=== PATIENT | male | born 1995 | race Two or more races ===

== ENCOUNTER 2024-01-25 22:25 | Emergency (ER) | payer OTHER ==
[~2024-01-25] VITALS: Ht 167.6 cm; Wt 71.2 kg
[2024-01-25] MEDS ORDERED: HYDREA500 M1 PO (22:41)
[2024-01-25] MEDS ORDERED: FOLIC ACID20 MG PO (22:42)
[2024-01-25] MEDS ORDERED: 0.9 % SODIUM CHLORIDE 1,000 ML IV STA (23:24)
[2024-01-25] MEDS ORDERED: HYDROXYUREA 500 MG CAP PO ONE (23:30)
[2024-01-25] MEDS ORDERED: MEPERIDINE HCL/PF 50 MG/ML VIAL IM ONE (23:45)
[2024-01-26 01:10] LABS: CALCIUM 9.6 mg/dL (8.5-10.1); CREATININE SERUM 0.84 mg/dL (0.70-1.30); GFR 107.29; POTASSIUM 3.83 mEq/L (3.5-5.1)
[2024-01-26] MEDS ORDERED: FAMOTIDINE/PF 20 MG/2 ML VIAL IV PUSH ONE (01:15)
[2024-01-26 01:41] LABS: HEMATOCRIT 34.4 % (39.0-48.0); HEMOGLOBIN 12.2 g/dL (13-16.00); MEAN CELL VOLUME 87.7 fL (80.0-100.00); MEAN CORPUSCULAR HEMOGLOBIN 31.1 pg (27.00-32.0); MEAN CORPUSCULAR HGB CONC 35.5 g/dl (32.0-36.0); PLATELET COUNT 399 K/uL (150-450); RED BLOOD COUNT 3.93 M/uL (4.00-6.00); RED CELL DISTRIBUTION WIDTH 17.2 % (11.5-14.5)
[2024-01-26] MEDS ORDERED: MORPHINE SULFATE 4 MG/ML VIAL IV STA (03:46)
[2024-01-26 03:59] LABS: PH,URINE 5.5 (5.0-8.0); URINE APPEARANCE Clear; URINE BILIRRUBIN Negative (NEGATIVE); URINE BLOOD Negative; URINE COLOR Yellow; URINE GLUCOSE Negative (NEGATIVE); URINE LEUKOCYTE Negative; URINE NITRATE Negative; URINE PROTEIN Negative (NEGATIVE); URINE UROBILINOGEN 0.2 E.U./dl
[2024-01-26 04:00] LABS: URINE BACTERIA 11.3 uL (0.0-1933); URINE RBC 28.5 uL (0.0-20.8)
[2024-01-26 04:09] LABS: URINE EPITHELIAL CELLS 0.1 uL (0.0-38.8); URINE WBC 1.6 uL (0.0-23.2)
[2024-01-26] MEDS ORDERED: HYDREA500 M1 PO (06:23)
== END 2024-01-26 06:28 ==
LOC: ER 22:26
PROVIDERS: Emergency Medicine
DX: D57.1 Sickle-cell disease without crisis (principal); Z88.6 Allergy status to analgesic agent

== ENCOUNTER 2024-06-02 20:12 | Emergency (ER) | payer OTHER ==
[~2024-06-02] VITALS: Ht 167.6 cm; Wt 74.8 kg
[~2024-06-02 20:12] MED LIST: FOLIC ACID20 MG PO; HYDREA500 M1 PO
[2024-06-02 21:27] LABS: HEMATOCRIT 38.8 % (39.0-48.0); HEMOGLOBIN 13.7 g/dL (13-16.00); MEAN CELL VOLUME 87.9 fL (80.0-100.00); MEAN CORPUSCULAR HGB CONC 35.3 g/dl (32.0-36.0); PLATELET COUNT 394 K/uL (150-450); RED BLOOD COUNT 4.41 M/uL (4.00-6.00); RED CELL DISTRIBUTION WIDTH 19.6 % (11.5-14.5)
== END 2024-06-02 23:23 | disposition home or self-care (01) ==
LOC: ER 20:14
DX: R53.81 Other malaise (principal); D57.1 Sickle-cell disease without crisis; I10 Essential (primary) hypertension; R53.83 Other fatigue; Z88.6 Allergy status to analgesic agent

== ENCOUNTER 2024-07-23 10:14 | Inpatient (IN) | payer OTHER ==
[~2024-07-23] VITALS: Ht 198.1 cm; Wt 71.2 kg
[2024-07-23] MEDS ORDERED: KETOROLAC TROMETHAMINE 60 MG VIAL IM STA (12:23)
[2024-07-23 13:55] LABS: HEMATOCRIT 34.2 % (39.0-48.0); HEMOGLOBIN 12.3 g/dL (13-16.00); MEAN CELL VOLUME 91.8 fL (80.0-100.00); MEAN CORPUSCULAR HGB CONC 35.9 g/dl (32.0-36.0); PLATELET COUNT 425 K/uL (150-450); RED BLOOD COUNT 3.72 M/uL (4.00-6.00)
[2024-07-23] MEDS ORDERED: RINGERS SOLUTION,LACTATED 1,000 ML IV STA (15:00)
[2024-07-23] MEDS ORDERED: MORPHINE SULFATE 4 MG/ML VIAL IV STA (15:01)
[2024-07-23] MEDS ORDERED: 0.9 % SODIUM CHLORIDE 1,000 ML IV SCH (17:45)
[2024-07-23] MEDS ORDERED: ACETAMINOPHEN 500 MG GEL..CAP PO PRN (17:45)
[2024-07-23] MEDS ORDERED: ONDANSETRON HCL 4 MG in 0.9 % SODIUM CHLORIDE 50 ML IV PRN (17:45)
[2024-07-23] MEDS ORDERED: hydrALAZINE HCL 20 MG VIAL IV PRN (18:00)
[2024-07-23] MEDS ORDERED: MORPHINE SULFATE 4 MG/ML VIAL IV SCH (18:00)
[2024-07-23 18:23] VITALS: BP 159/79
[2024-07-23 19:37] LABS: ABG PH 7.466 (7.35-7.45); ABG PO2 98.8 mmHg (80-100); ABG pCO2 33.6 mmHg (35-45); BASE EXCESS 0.6 mmol/l; BICARBONATE 23.7 mmol/l (23-25); SaO2 98.1 %; Tco2 24.7 mmol/l
[2024-07-23 20:00] LABS: o2 21 %
[2024-07-23 20:02] LABS: allen test SATISFACTORY; puncture site RADIAL RIGHT
[2024-07-23 20:13] LABS: CKMB < 1.0 NG/ML (0.5-3.6); PHOSPHOKINASE CREATININE 123 U/L (39-308)
[2024-07-23 20:40] VITALS: BP 140/90
[2024-07-24 00:15] VITALS: BP 160/82; O2SAT 97
[2024-07-24 06:35] LABS: PH,URINE 6.5 (5.0-8.0); URINE APPEARANCE Clear; URINE BILIRRUBIN Negative (NEGATIVE); URINE BLOOD Negative; URINE COLOR Yellow; URINE GLUCOSE Negative (NEGATIVE); URINE KETONE Negative (NEGATIVE); URINE LEUKOCYTE Negative; URINE NITRATE Negative; URINE PROTEIN Negative (NEGATIVE); URINE UROBILINOGEN 0.2 E.U./dl
[2024-07-24 06:39] LABS: URINE BACTERIA 22.6 uL (0.0-1933); URINE EPITHELIAL CELLS 1.6 uL (0.0-38.8)
[2024-07-24 06:44] LABS: INR 1.01; PARTIAL THROMBOPLASTIN TIME 27.3 SECONDS (22.0-34.0)
[2024-07-24 06:58] LABS: HEMATOCRIT 33.9 % (39.0-48.0); HEMOGLOBIN 12.3 g/dL (13-16.00); MEAN CELL VOLUME 92.4 fL (80.0-100.00); MEAN CORPUSCULAR HEMOGLOBIN 33.5 pg (27.00-32.0); MEAN CORPUSCULAR HGB CONC 36.3 g/dl (32.0-36.0); PLATELET COUNT 411 K/uL (150-450); RED BLOOD COUNT 3.67 M/uL (4.00-6.00); RED CELL DISTRIBUTION WIDTH 16.7 % (11.5-14.5)
[2024-07-24 07:07] LABS: URINE RBC 0.6 uL (0.0-20.8)
[2024-07-24 07:48] LABS: PHOSPHOKINASE CREATININE 139 U/L (39-308)
[2024-07-24 07:54] LABS: CKMB < 1.0 NG/ML (0.5-3.6)
[2024-07-24 07:55] LABS: ALBUMIN 4.7 gm/dL (3.4-5.0); ALKALINE PHOSPHATASE 68 U/L (50-136); ALT/SGPT 25 U/L (12-78); ANION GAP 11 (10.0-20.0); AST/SGOT 26 U/L (15-37); BILIRUBIN TOTAL 1.39 mg/dL (0.3-1.2); BILIRUBIN,CONJUGATED 0.25 mg/dL (0.0-0.2); BILIRUBIN,UNCONJUGATED 1.14 mg/dL (0.0-0.6); BLOOD UREA NITROGEN 10 mg/dL (7-18); BUN CREA RATIO 14 (7.0-25.0); CALCIUM 9.6 mg/dL (8.5-10.1); CARBON DIOXIDE 26 mEq/L (21-32); CHLORIDE 107 mmol/L (98-107); CHOL HDL RATIO 3.7 (0-5.0); CHOLESTEROL 166 mg/dL (0-200); CREATININE SERUM 0.69 mg/dL (0.70-1.30); GFR 134.63; GLOBULINA 3.2 G/DL (2.4-3.5); GLUCOSE FASTING 90 mg/dL (65-100); HDL 45 mg/dl (40-60); LDL 99 mg/dl (0-130); LIPASE 27 U/L (13-75); OSMOLALITY SERUM 278 MOSM/KG (275-295); SODIUM 140 mmol/L (136-145); TOTAL PROTEIN 7.9 gm/dL (6.4-8.2); TRIGLYCERIDES 108 mg/dL (0-150); VLDL 21 (0-39)
[2024-07-24 08:04] LABS: C-REACTIVE PROTEIN < 0.29 MG/DL (0.00-0.29)
[2024-07-24 08:14] LABS: ERYTHROCYTE SEDIMENTATION RATE < 1 mm/hr
[2024-07-24 08:32] VITALS: BP 143/76; O2SAT 99
[2024-07-24] MEDS ORDERED: LORATADINE 10 MG TABLET PO SCH (09:00)
[2024-07-24] MEDS ORDERED: PANTOPRAZOLE SODIUM 40 MG in 0.9 % SODIUM CHLORIDE 8 ML IV PUSH SCH (09:00)
[2024-07-24] MEDS ORDERED: CEFTRIAXONE SODIUM 1,000 MG VIAL IV SCH (09:00)
[2024-07-24 15:30] VITALS: BP 145/88; O2SAT 100
[2024-07-24] MEDS ORDERED: IBUprofen 800 MG TABLET PO PRN (16:15)
[2024-07-24] MEDS ORDERED: MORPHINE SULFATE 4 MG/ML CARTRIDGE IV SCH ×2 (18:00→20:00)
[2024-07-24] MEDS ORDERED: POLYETHYLENE GLYCOL 3350 17 GM BLIST.PACK PO SCH (18:29)
[2024-07-24] MEDS ORDERED: HYDROXYUREA 500 MG CAP PO SCH (18:32)
[2024-07-24] MEDS ORDERED: FOLIC ACID 1 MG TABLET PO SCH (18:33)
[2024-07-24 19:01] LABS: PHOSPHOKINASE CREATININE 137 U/L (39-308)
[2024-07-24 19:04] LABS: CKMB < 1.0 NG/ML (0.5-3.6)
[2024-07-25 01:05] VITALS: BP 160/74; O2SAT 98
[2024-07-25 08:56] VITALS: BP 153/61; O2SAT 99
[2024-07-25] MEDS ORDERED: MORPHINE SULFATE 4 MG,MORPHINE SULFATE 2 MG IV SCH (09:00)
[2024-07-25 16:44] VITALS: BP 141/95; O2SAT 100
[2024-07-26 00:52] VITALS: BP 137/80; O2SAT 100
[2024-07-26 08:43] VITALS: BP 147/73; O2SAT 98
[2024-07-26 16:50] VITALS: BP 144/69; O2SAT 97
[2024-07-27 00:24] VITALS: BP 135/72; O2SAT 98
[2024-07-27 08:37] VITALS: BP 135/75; O2SAT 98
== END 2024-07-27 10:06 | disposition home or self-care (01) | DRG 812 ==
LOC: ER 10:16 → MEDJ 18:22
PROVIDERS: General Practice; ADMIT Internal Medicine; ATTEND Internal Medicine
PROC: BW24ZZZ Computerized Tomography (CT Scan) of Chest and Abdomen (ICD-10-PCS; principal; 2024-07-23)
PROC: BW28ZZZ Computerized Tomography (CT Scan) of Head (ICD-10-PCS; 2024-07-24)
PROC: 02HV33Z Insertion of Infusion Device into Superior Vena Cava, Percutaneous Approach (ICD-10-PCS; 2024-07-24)
DX: D57.01 Hb-SS disease with acute chest syndrome (principal); J98.19 Other pulmonary collapse; E86.0 Dehydration; I10 Essential (primary) hypertension; M79.10 Myalgia, unspecified site

== ENCOUNTER 2024-10-04 19:23 | Emergency (ER) | payer OTHER ==
[~2024-10-04] VITALS: Ht 165.1 cm; Wt 68.0 kg
[2024-10-04] MEDS ORDERED: KETOROLAC TROMETHAMINE 60 MG VIAL IM ONE (23:00)
[2024-10-04] MEDS ORDERED: DEXAMETHASONE SODIUM PHOSPHATE 4 MG/ML VIAL IM ONE (23:00)
[2024-10-04] MEDS ORDERED: IBU600 MG PO (23:08)
== END 2024-10-04 23:16 | disposition home or self-care (01) ==
LOC: ER 19:25
DX: R07.89 Other chest pain (principal); D57.1 Sickle-cell disease without crisis

== ENCOUNTER 2024-11-07 02:07 | Emergency (ER) | payer OTHER ==
[~2024-11-07] VITALS: Ht 167.6 cm; Wt 68.0 kg
[~2024-11-07 02:07] MED LIST changes: +IBU600 MG PO
[2024-11-07] MEDS ORDERED: DEXAMETHASONE SODIUM PHOSPHATE 4 MG/ML VIAL IV STA (03:44)
[2024-11-07] MEDS ORDERED: KETOROLAC TROMETHAMINE 30 MG VIAL IV STA (03:44)
[2024-11-07] MEDS ORDERED: PROMETHAZINE HCL 25 MG/ML AMPUL IM STA (03:45)
[2024-11-07] MEDS ORDERED: MEPERIDINE HCL/PF 25 MG/ML VIAL IM STA (03:45)
[2024-11-07] MEDS ORDERED: PROMETHAZINE HCL 25 MG/ML AMPUL ONE (03:53)
[2024-11-07] MEDS ORDERED: KETOROLAC TROMETHAMINE 30 MG VIAL ONE ×2 (03:53→04:37)
[2024-11-07] MEDS ORDERED: DEXAMETHASONE SODIUM PHOSPHATE 4 MG/ML VIAL ONE ×2 (03:53→04:38)
[2024-11-07 06:11] LABS: HEMATOCRIT 35.1 % (39.0-48.0); HEMOGLOBIN 12.7 g/dL (13-16.00); MEAN CELL VOLUME 92.4 fL (80.0-100.00); MEAN CORPUSCULAR HEMOGLOBIN 33.4 pg (27.00-32.0); MEAN CORPUSCULAR HGB CONC 36.1 g/dl (32.0-36.0); PLATELET COUNT 357 K/uL (150-450); RED BLOOD COUNT 3.79 M/uL (4.00-6.00); RED CELL DISTRIBUTION WIDTH 18.7 % (11.5-14.5)
[2024-11-07 06:17] LABS: ERYTHROCYTE SEDIMENTATION RATE < 1 mm/hr
== END 2024-11-07 09:08 | disposition home or self-care (01) ==
LOC: ER 02:09
DX: M13.0 Polyarthritis, unspecified (principal)

== ENCOUNTER 2025-01-13 13:30 | Emergency (ER) | payer OTHER ==
[~2025-01-13] VITALS: Ht 167.6 cm; Wt 72.6 kg
[2025-01-13] MEDS ORDERED: 0.9 % SODIUM CHLORIDE 1,000 ML IV ONE (14:30)
[2025-01-13] MEDS ORDERED: MORPHINE SULFATE 4 MG/ML VIAL IV ONE (14:30)
[2025-01-13 15:43] LABS: HEMATOCRIT 37.6 % (39.0-48.0); HEMOGLOBIN 13.2 g/dL (13-16.00); MEAN CELL VOLUME 88.6 fL (80.0-100.00); MEAN CORPUSCULAR HEMOGLOBIN 31.2 pg (27.00-32.0); MEAN CORPUSCULAR HGB CONC 35.2 g/dl (32.0-36.0); PLATELET COUNT 310 K/uL (150-450); RED BLOOD COUNT 4.24 M/uL (4.00-6.00); RED CELL DISTRIBUTION WIDTH 20.4 % (11.5-14.5)
[2025-01-13 17:01] LABS: INR 1.06; PARTIAL THROMBOPLASTIN TIME 25.9 SECONDS (22.0-34.0); PROTHROMBIN TIME 11.5 SECONDS (9.0-11.5)
[2025-01-13 17:03] LABS: URINE APPEARANCE Clear; URINE BILIRRUBIN Negative (NEGATIVE); URINE BLOOD Negative; URINE COLOR Yellow; URINE GLUCOSE Negative (NEGATIVE); URINE KETONE Trace (NEGATIVE); URINE LEUKOCYTE Negative; URINE NITRATE Negative; URINE PROTEIN Negative (NEGATIVE); URINE UROBILINOGEN 0.2 E.U./dl
[2025-01-13 17:04] LABS: URINE BACTERIA 6.1 uL (0.0-1933); URINE EPITHELIAL CELLS 3.7 uL (0.0-38.8); URINE WBC 7.7 uL (0.0-23.2)
[2025-01-13 17:05] LABS: ALBUMIN 4.6 gm/dL (3.4-5.0); BILIRUBIN TOTAL 0.98 mg/dL (0.3-1.2); BILIRUBIN,CONJUGATED 0.21 mg/dL (0.0-0.2); BILIRUBIN,UNCONJUGATED 0.77 mg/dL (0.0-0.6); CALCIUM 9.6 mg/dL (8.5-10.1); CREATININE SERUM 0.84 mg/dL (0.70-1.30); GFR 106.58; GLOBULINA 3.3 G/DL (2.4-3.5); POTASSIUM 3.75 mEq/L (3.5-5.1); TOTAL PROTEIN 7.9 gm/dL (6.4-8.2)
[2025-01-13 17:21] LABS: URINE RBC 1.1 uL (0.0-20.8)
[2025-01-13] MEDS ORDERED: ACETAMINOPHEN 500 MG GEL..CAP PO ONE ×2 (18:23→18:30)
[2025-01-13 20:26] LABS: HEMOGLOBIN 12.3 g/dL (13-16.00); MEAN CELL VOLUME 88.5 fL (80.0-100.00); MEAN CORPUSCULAR HEMOGLOBIN 31.1 pg (27.00-32.0); MEAN CORPUSCULAR HGB CONC 35.2 g/dl (32.0-36.0); PLATELET COUNT 287 K/uL (150-450); RED BLOOD COUNT 3.96 M/uL (4.00-6.00)
[2025-01-13] MEDS ORDERED: DIPHENHYDRAMINE HCL 50 MG/ML VIAL 1ML IV ONE (21:30)
[2025-01-13] MEDS ORDERED: DEXAMETHASONE SODIUM PHOSPHATE 4 MG/ML VIAL IV ONE (21:30)
[2025-01-13] MEDS ORDERED: ORPHENADRINE CITRATE 30 MG/ML AMPUL IM ONE (21:30)
[2025-01-13] MEDS ORDERED: DIPHENHYDRAMINE HCL 50 MG/ML VIAL 1ML ONE (21:42)
[2025-01-13] MEDS ORDERED: ORPHENADRINE CITRATE 30 MG/ML AMPUL ONE (21:42)
[2025-01-13] MEDS ORDERED: DEXAMETHASONE SODIUM PHOSPHATE 4 MG/ML VIAL ONE (21:42)
== END 2025-01-13 22:33 | disposition home or self-care (01) ==
LOC: ER 13:33
PROVIDERS: General Practice; Preventive Medicine Public Health & General Preventive Medicine
DX: R51.9 Headache, unspecified (principal); Z86.2 Personal history of diseases of the blood and blood-forming organs and certain disorders involving the immune mechanism; Z20.822 Contact with and (suspected) exposure to COVID-19

== ENCOUNTER 2025-01-19 02:02 | Emergency (ER) | payer OTHER ==
[~2025-01-19] VITALS: Ht 167.6 cm; Wt 72.6 kg
[2025-01-19] MEDS ORDERED: MORPHINE SULFATE 4 MG/ML VIAL IV STA (04:45)
[2025-01-19] MEDS ORDERED: 0.9 % SODIUM CHLORIDE 1,000 ML IV ONE (04:45)
[2025-01-19] MEDS ORDERED: KETOROLAC TROMETHAMINE 60 MG VIAL IM ONE ×2 (06:11→06:15)
[2025-01-19 07:43] VITALS: BP 118/84; O2SAT 98
[2025-01-19 07:51] LABS: ERYTHROCYTE SEDIMENTATION RATE < 1 mm/hr
[2025-01-19 07:53] LABS: HEMATOCRIT 39.6 % (39.0-48.0); HEMOGLOBIN 13.6 g/dL (13-16.00); MEAN CELL VOLUME 89.7 fL (80.0-100.00); MEAN CORPUSCULAR HEMOGLOBIN 30.9 pg (27.00-32.0); MEAN CORPUSCULAR HGB CONC 34.4 g/dl (32.0-36.0); PLATELET COUNT 384 K/uL (150-450); RED BLOOD COUNT 4.42 M/uL (4.00-6.00); RED CELL DISTRIBUTION WIDTH 20.3 % (11.5-14.5)
[2025-01-19 08:11] LABS: INR 1.01; PARTIAL THROMBOPLASTIN TIME 25.6 SECONDS (22.0-34.0)
[2025-01-19 08:21] LABS: ALBUMIN 4.9 gm/dL (3.4-5.0); BILIRUBIN TOTAL 0.97 mg/dL (0.3-1.2); BILIRUBIN,CONJUGATED 0.19 mg/dL (0.0-0.2); BILIRUBIN,UNCONJUGATED 0.78 mg/dL (0.0-0.6); CALCIUM 10.8 mg/dL (8.5-10.1); CREATININE SERUM 0.82 mg/dL (0.70-1.30); GFR 109.58; GLOBULINA 3.4 G/DL (2.4-3.5); POTASSIUM 4.29 mEq/L (3.5-5.1); TOTAL PROTEIN 8.3 gm/dL (6.4-8.2)
== END 2025-01-19 09:13 | disposition home or self-care (01) ==
LOC: ER 02:05
PROVIDERS: General Practice
DX: D57.1 Sickle-cell disease without crisis (principal); M13.0 Polyarthritis, unspecified

== ENCOUNTER 2025-02-27 05:26 | Inpatient (IN) | payer OTHER ==
[~2025-02-27] VITALS: Ht 167.6 cm; Wt 81.6 kg
[2025-02-27] MEDS ORDERED: MORPHINE SULFATE 4 MG/ML VIAL IV ONE ×2 (06:00→08:00)
[2025-02-27] MEDS ORDERED: 0.9 % SODIUM CHLORIDE 1,000 ML IV SCH (06:00)
[2025-02-27] MEDS ORDERED: KETOROLAC TROMETHAMINE 60 MG VIAL IM ONE (06:14)
[2025-02-27] MEDS ORDERED: KETOROLAC TROMETHAMINE 30 MG VIAL IV ONE (06:15)
[2025-02-27 07:54] LABS: INR 0.96; PARTIAL THROMBOPLASTIN TIME 24.5 SECONDS (22.0-34.0); PROTHROMBIN TIME 10.5 SECONDS (9.0-11.5)
[2025-02-27 07:55] LABS: HEMATOCRIT 33.6 % (39.0-48.0); HEMOGLOBIN 11.5 g/dL (13-16.00); MEAN CELL VOLUME 90.2 fL (80.0-100.00); MEAN CORPUSCULAR HGB CONC 34.3 g/dl (32.0-36.0); PLATELET COUNT 251 K/uL (150-450); RED BLOOD COUNT 3.72 M/uL (4.00-6.00); RED CELL DISTRIBUTION WIDTH 20.9 % (11.5-14.5)
[2025-02-27 08:05] LABS: ALBUMIN 4.4 gm/dL (3.4-5.0); BILIRUBIN TOTAL 0.7 mg/dL (0.3-1.2); CREATININE SERUM 0.88 mg/dL (0.70-1.30); GFR 101.01; GLOBULINA 3.2 G/DL (2.4-3.5); POTASSIUM 3.87 mEq/L (3.5-5.1); TOTAL PROTEIN 7.6 gm/dL (6.4-8.2)
[2025-02-27] MEDS ORDERED: DIPHENHYDRAMINE HCL 50 MG/ML VIAL 1ML ONE ×2 (08:10→12:45)
[2025-02-27] MEDS ORDERED: DIPHENHYDRAMINE HCL 50 MG/ML VIAL 1ML IV ONE (08:15)
[2025-02-27] MEDS ORDERED: GABAPENTIN 300 MG CAPSULE PO SCH (10:30)
[2025-02-27] MEDS ORDERED: MORPHINE SULFATE 4 MG/ML VIAL IV PRN ×2 (10:30→11:01)
[2025-02-27] MEDS ORDERED: DIPHENHYDRAMINE HCL 50 MG/ML VIAL 1ML IV PRN (11:15)
[2025-02-27 16:52] VITALS: BP 136/71; O2SAT 100
[2025-02-27 22:26] VITALS: BP 153/89
[2025-02-28 01:02] VITALS: BP 153/90; O2SAT 99
[2025-02-28] MEDS ORDERED: IBUprofen 800 MG TABLET PO PRN (08:15)
[2025-02-28] MEDS ORDERED: IPRATROPIUM BROMIDE 0.5 MG/2.5 ML AMPUL.NEB IH SCH (09:00)
[2025-02-28 09:17] VITALS: BP 133/78
[2025-02-28 18:24] VITALS: BP 145/80
[2025-03-01 01:45] VITALS: BP 143/89
[2025-03-01 10:15] VITALS: BP 154/76; O2SAT 99
[2025-03-01 11:56] LABS: HEMATOCRIT 29.5 % (39.0-48.0); HEMOGLOBIN 10.4 g/dL (13-16.00); MEAN CORPUSCULAR HEMOGLOBIN 31.4 pg (27.00-32.0); MEAN CORPUSCULAR HGB CONC 35.3 g/dl (32.0-36.0); PLATELET COUNT 196 K/uL (150-450); RED BLOOD COUNT 3.32 M/uL (4.00-6.00); RED CELL DISTRIBUTION WIDTH 21.2 % (11.5-14.5)
[2025-03-01 12:45] LABS: CALCIUM 8.4 mg/dL (8.5-10.1); CREATININE SERUM 0.75 mg/dL (0.70-1.30); GFR 121.47; POTASSIUM 3.22 mEq/L (3.5-5.1)
[2025-03-01] MEDS ORDERED: POTASSIUM CHLORIDE 20MEQ/100ML H2O PB IV NR (16:00)
[2025-03-01] MEDS ORDERED: MORPHINE SULFATE 4 MG/ML VIAL IV PRN (17:45)
[2025-03-02 00:24] VITALS: BP 115/64
[2025-03-02 08:00] VITALS: BP 123/81; O2SAT 98
[2025-03-02] MEDS ORDERED: FOLIC ACID 1 MG TABLET PO SCH (09:00)
[2025-03-02] MEDS ORDERED: HYDROXYUREA 500 MG CAP PO SCH (09:00)
[2025-03-02 10:09] LABS: ALBUMIN 3.3 gm/dL (3.4-5.0); BILIRUBIN TOTAL 0.73 mg/dL (0.3-1.2); CREATININE SERUM 0.58 mg/dL (0.70-1.30); GFR 163.41; GLOBULINA 2.4 G/DL (2.4-3.5); TOTAL PROTEIN 5.7 gm/dL (6.4-8.2)
[2025-03-02 11:31] LABS: COVID-19 AG NEGATIVE (NEGATIVE)
[2025-03-02 11:33] LABS: INFLUENZA A AG NEGATIVE (NEGATIVE)
[2025-03-02] MEDS ORDERED: GUAIFENESIN 200 MG/10 ML BLIST.PACK PO SCH (12:00)
[2025-03-02 13:24] LABS: HEMATOCRIT 29.7 % (39.0-48.0); HEMOGLOBIN 10.5 g/dL (13-16.00); MEAN CELL VOLUME 88.5 fL (80.0-100.00); MEAN CORPUSCULAR HEMOGLOBIN 31.3 pg (27.00-32.0); MEAN CORPUSCULAR HGB CONC 35.4 g/dl (32.0-36.0); PLATELET COUNT 175 K/uL (150-450); RED BLOOD COUNT 3.35 M/uL (4.00-6.00); RED CELL DISTRIBUTION WIDTH 21.1 % (11.5-14.5)
[2025-03-02] MEDS ORDERED: OSELTAMIVIR PHOSPHATE 75 MG CAPSULE PO SCH (17:00)
[2025-03-02 17:58] VITALS: BP 152/83; O2SAT 97
[2025-03-03 02:07] VITALS: BP 127/66; O2SAT 97
[2025-03-03 18:22] VITALS: BP 131/71; O2SAT 96
[2025-03-04 02:29] VITALS: BP 116/56; O2SAT 97
[2025-03-04 08:28] VITALS: BP 107/71
[2025-03-04] MEDS ORDERED: MORPHINE SULFATE 4 MG/ML CARTRIDGE IV SCH (09:00)
[2025-03-04 16:52] VITALS: BP 127/78; O2SAT 97
[2025-03-05 00:25] VITALS: BP 133/80; O2SAT 99
[2025-03-05 08:12] VITALS: BP 127/83
== END 2025-03-05 14:10 | disposition home or self-care (01) | DRG 812 ==
LOC: ER 05:26 → MEDJ 13:38
PROVIDERS: General Practice; ADMIT Internal Medicine; ATTEND Internal Medicine
PROC: 02HV33Z Insertion of Infusion Device into Superior Vena Cava, Percutaneous Approach (ICD-10-PCS; 2025-03-01)
PROC: 8E0ZXY6 Isolation (ICD-10-PCS; principal; 2025-03-04)
DX: D57.00 Hb-SS disease with crisis, unspecified (principal); J10.1 Influenza due to other identified influenza virus with other respiratory manifestations

== ENCOUNTER 2025-06-02 23:21 | Emergency (ER) | payer OTHER ==
[~2025-06-02] VITALS: Ht 167.6 cm; Wt 72.6 kg
[2025-06-02 23:39] VITALS: BP 140/86; O2SAT 100
[2025-06-03] MEDS ORDERED: KETOROLAC TROMETHAMINE 60 MG VIAL IM STA (01:59)
[2025-06-03] MEDS ORDERED: DEXAMETHASONE SODIUM PHOSPHATE 4 MG/ML VIAL IM STA (02:00)
[2025-06-03] MEDS ORDERED: TRAMADOL HCL 50 MG TABLET PO STA (02:00)
[2025-06-03] MEDS ORDERED: DEXAMETHASONE SODIUM PHOSPHATE 4 MG/ML VIAL ONE (02:07)
[2025-06-03] MEDS ORDERED: KETOROLAC TROMETHAMINE 60 MG VIAL IM ONE (02:07)
[2025-06-03 02:46] LABS: BASO % 0.9 % (0.1-1.2); EOS # 0.25 (0.04-0.54); EOS % 2.2 % (0.7-7.0); LYMPH # 5.59 (1.18-3.74); LYMPH % 49.0 % (19.3-53.1); MEAN PLATELET VOLUME 9.60 fl (9.4-12.4); MONO # 0.95 (0.24-0.82); MONO % 8.3 % (4.7-12.5); NEUT # 4.48 (1.56-6.13); NEUT % 39.3 % (34.0-71.1); RED CELL DISTRIBUTION WIDTH 16.3 % (11.6-14.4)
[2025-06-03 03:11] LABS: BILIRUBIN TOTAL 0.75 mg/dL (0.3-1.2); BILIRUBIN,CONJUGATED 0.13 mg/dL (0.0-0.2)
== END 2025-06-03 03:36 | disposition home or self-care (01) ==
LOC: ER 23:21
DX: M25.511 Pain in right shoulder (principal); E87.1 Hypo-osmolality and hyponatremia

== ENCOUNTER 2025-06-28 02:32 | Emergency (ER) | payer OTHER ==
[~2025-06-28] VITALS: Ht 170.2 cm; Wt 72.6 kg
[2025-06-28] MEDS ORDERED: FOLIC ACID1 MG PO (02:39)
[2025-06-28 02:43] VITALS: BP 146/98; O2SAT 98
[2025-06-28] MEDS ORDERED: 0.9 % SODIUM CHLORIDE 1,000 ML IV STA (03:14)
[2025-06-28] MEDS ORDERED: ACETAMINOPHEN 500 MG GEL..CAP PO STA (03:15)
[2025-06-28] MEDS ORDERED: MORPHINE SULFATE 4 MG/ML VIAL IV STA ×2 (03:15→07:16)
[2025-06-28] MEDS ORDERED: ACETAMINOPHEN 500 MG GEL..CAP PO ONE (03:35)
[2025-06-28 04:14] LABS: BASO % 1.2 % (0.1-1.2); EOS # 0.14 (0.04-0.54); EOS % 1.8 % (0.7-7.0); LYMPH # 4.08 (1.18-3.74); LYMPH % 53.3 % (19.3-53.1); MEAN PLATELET VOLUME 9.70 fl (9.4-12.4); MONO # 0.74 (0.24-0.82); MONO % 9.7 % (4.7-12.5); NEUT # 2.60 (1.56-6.13); NEUT % 33.9 % (34.0-71.1); RED CELL DISTRIBUTION WIDTH 15.9 % (11.6-14.4)
[2025-06-28 04:18] LABS: ERYTHROCYTE SEDIMENTATION RATE < 1 mm/hr (0-15)
[2025-06-28 04:27] LABS: ALT/SGPT 26.0 U/L (12-78); AST/SGOT 18.0 U/L (15-37); BILIRUBIN TOTAL 0.87 mg/dL (0.3-1.2); BILIRUBIN,CONJUGATED 0.19 mg/dL (0.0-0.2); BUN CREA RATIO 15.0 (7.0-25.0); CREATININE SERUM 0.87 mg/dL (0.70-1.30); GFR 102.35; GLOBULINA 3.1 G/DL (2.4-3.5); GLUCOSE FASTING 91.0 mg/dL (65-100); OSMOLALITY SERUM 285.0 MOSM/KG (275-295)
[2025-06-28 05:41] LABS: URINE APPEARANCE Clear; URINE BILIRRUBIN Negative (NEGATIVE); URINE BLOOD Negative; URINE COLOR Yellow; URINE GLUCOSE Negative (NEGATIVE); URINE KETONE Negative (NEGATIVE); URINE LEUKOCYTE Negative; URINE NITRATE Negative; URINE PROTEIN Negative (NEGATIVE); URINE UROBILINOGEN 0.2 E.U./dl
[2025-06-28 05:45] LABS: URINE BACTERIA 5.9 uL (0.0-1933); URINE EPITHELIAL CELLS 4.1 uL (0.0-38.8); URINE WBC 3.0 uL (0.0-23.2)
[2025-06-28 05:57] LABS: URINE CAST 0.00 uL (0.0-1.40); URINE RBC 0.5 uL (0.0-20.8)
[2025-06-28] MEDS ORDERED: KETOROLAC TROMETHAMINE 30 MG VIAL IV STA (05:58)
[2025-06-28] MEDS ORDERED: KETOROLAC TROMETHAMINE 30 MG VIAL ONE (06:04)
== END 2025-06-28 08:21 | disposition home or self-care (01) ==
LOC: ER 02:32
DX: D57.00 Hb-SS disease with crisis, unspecified (principal)

== ENCOUNTER 2025-06-29 12:17 | Inpatient (IN) | payer OTHER ==
[~2025-06-29] VITALS: Ht 170.2 cm; Wt 74.8 kg
[~2025-06-29 12:17] MED LIST changes: +FOLIC ACID1 MG PO
[2025-06-29] MEDS ORDERED: 0.9 % SODIUM CHLORIDE 1,000 ML IV ONE (14:30)
[2025-06-29] MEDS ORDERED: MORPHINE SULFATE 4 MG/ML VIAL IV ONE ×2 (14:30→19:00)
[2025-06-29 16:27] LABS: LYMPH % 29.0 % (19.3-53.1)
[2025-06-29 16:38] LABS: BASO % 0.8 % (0.1-1.2); EOS # 0.10 (0.04-0.54); EOS % 0.9 % (0.7-7.0); LYMPH # 3.08 (1.18-3.74); MEAN PLATELET VOLUME 9.30 fl (9.4-12.4); MONO # 0.72 (0.24-0.82); MONO % 6.8 % (4.7-12.5); NEUT # 6.36 (1.56-6.13); NEUT % 59.9 % (34.0-71.1); RED CELL DISTRIBUTION WIDTH 15.5 % (11.6-14.4)
[2025-06-29 16:58] LABS: INR 1.12
[2025-06-29 16:59] LABS: ALT/SGPT 25.0 U/L (12-78); AST/SGOT 34.0 U/L (15-37); BILIRUBIN TOTAL 1.69 mg/dL (0.3-1.2); BUN CREA RATIO 12.0 (7.0-25.0); CREATININE SERUM 0.81 mg/dL (0.70-1.30); GFR 111.15; GLOBULINA 2.7 G/DL (2.4-3.5); GLUCOSE FASTING 80.0 mg/dL (65-100); OSMOLALITY SERUM 285.0 MOSM/KG (275-295)
[2025-06-29] MEDS ORDERED: ORPHENADRINE CITRATE 30 MG/ML AMPUL ONE (17:39)
[2025-06-29] MEDS ORDERED: ORPHENADRINE CITRATE 30 MG/ML AMPUL IV ONE (17:45)
[2025-06-29 18:33] LABS: BILIRUBIN,CONJUGATED 0.34 mg/dL (0.0-0.2)
[2025-06-29] MEDS ORDERED: SODIUM CHLORIDE 0.45 % 1,000 ML IV SCH ×2 (19:30→21:15)
[2025-06-29] MEDS ORDERED: MORPHINE SULFATE 4 MG/ML VIAL IV PRN (19:30)
[2025-06-29] MEDS ORDERED: ACETAMINOPHEN 500 MG GEL..CAP PO PRN (19:30)
[2025-06-29] MEDS ORDERED: ACETAMINOPHEN 500 MG GEL..CAP PO ONE (20:38)
[2025-06-29] MEDS ORDERED: MORPHINE SULFATE 4 MG/ML CARTRIDGE IV SCH (21:12)
[2025-06-29 21:17] LABS: URINE APPEARANCE Clear; URINE BILIRRUBIN Negative (NEGATIVE); URINE BLOOD Negative; URINE COLOR Yellow; URINE GLUCOSE Negative (NEGATIVE); URINE KETONE 15 (NEGATIVE); URINE LEUKOCYTE Negative; URINE NITRATE Negative; URINE PROTEIN Negative (NEGATIVE); URINE UROBILINOGEN 0.2 E.U./dl
[2025-06-29 21:18] LABS: URINE BACTERIA 4.7 uL (0.0-1933); URINE RBC 4.8 uL (0.0-20.8); URINE WBC 2.3 uL (0.0-23.2)
[2025-06-29 21:28] LABS: URINE CAST 0.00 uL (0.0-1.40); URINE EPITHELIAL CELLS 1.3 uL (0.0-38.8)
[2025-06-29] MEDS ORDERED: KETOROLAC TROMETHAMINE 30 MG VIAL IV STA (22:26)
[2025-06-29] MEDS ORDERED: KETOROLAC TROMETHAMINE 30 MG VIAL IV PRN (22:30)
[2025-06-29 22:36] LABS: COVID-19 AG NEGATIVE (NEGATIVE)
[2025-06-30 01:15] VITALS: BP 132/65; O2SAT 99
[2025-06-30 02:33] VITALS: BP 125/57; O2SAT 100
[2025-06-30] MEDS ORDERED: MORPHINE SULFATE 4 MG/ML CARTRIDGE IV ONE (06:15)
[2025-06-30 07:59] VITALS: BP 122/78; O2SAT 99
[2025-06-30] MEDS ORDERED: ORPHENADRINE CITRATE 30 MG/ML AMPUL IV PRN (09:00)
[2025-06-30] MEDS ORDERED: POTASSIUM BICARBONATE/CIT AC 25 MEQ TABLET.EFF PO NR (10:30)
[2025-06-30] MEDS ORDERED: MORPHINE SULFATE 4 MG/ML CARTRIDGE IV PRN (10:50)
[2025-06-30] MEDS ORDERED: DIPHENHYDRAMINE HCL 50 MG/ML VIAL 1ML IV PRN (11:00)
[2025-06-30] MEDS ORDERED: MORPHINE SULFATE 4 MG/ML CARTRIDGE IV STA (16:40)
[2025-06-30] MEDS ORDERED: KETOROLAC TROMETHAMINE 30 MG VIAL IM PRN (16:40)
[2025-06-30] MEDS ORDERED: GABAPENTIN 800 MG TABLET PO STA (16:44)
[2025-06-30] MEDS ORDERED: 0.9 % SODIUM CHLORIDE 1,000 ML IV SCH (16:45)
[2025-06-30] MEDS ORDERED: GABAPENTIN 800 MG TABLET PO SCH (17:00)
[2025-06-30 17:18] VITALS: BP 160/74; O2SAT 100
[2025-06-30 19:41] LABS: ALT/SGPT 44.0 U/L (12-78); AST/SGOT 83.0 U/L (15-37); BILIRUBIN TOTAL 1.4 mg/dL (0.3-1.2); BUN CREA RATIO 11.0 (7.0-25.0); CREATININE SERUM 0.66 mg/dL (0.70-1.30); GFR 140.78; GLOBULINA 2.2 G/DL (2.4-3.5); GLUCOSE FASTING 103.0 mg/dL (65-100); OSMOLALITY SERUM 278.0 MOSM/KG (275-295)
[2025-07-01 00:50] VITALS: BP 142/84; O2SAT 99
[2025-07-01 08:04] VITALS: BP 144/84; O2SAT 99
[2025-07-01 14:54] LABS: BASO % 0.5 % (0.1-1.2); EOS # 0.10 (0.04-0.54); EOS % 1.0 % (0.7-7.0); LYMPH # 2.87 (1.18-3.74); LYMPH % 29.4 % (19.3-53.1); MEAN PLATELET VOLUME 10.40 fl (9.4-12.4); MONO # 0.45 (0.24-0.82); MONO % 4.6 % (4.7-12.5); NEUT # 6.18 (1.56-6.13); NEUT % 63.4 % (34.0-71.1); RED CELL DISTRIBUTION WIDTH 16.0 % (11.6-14.4)
[2025-07-01 15:05] LABS: ALT/SGPT 37.0 U/L (12-78); AST/SGOT 71.0 U/L (15-37); BILIRUBIN TOTAL 1.19 mg/dL (0.3-1.2); BUN CREA RATIO 7.0 (7.0-25.0); CREATININE SERUM 0.67 mg/dL (0.70-1.30); GFR 138.35; GLOBULINA 2.3 G/DL (2.4-3.5); GLUCOSE FASTING 87.0 mg/dL (65-100); OSMOLALITY SERUM 278.0 MOSM/KG (275-295)
[2025-07-01] MEDS ORDERED: POTASSIUM PHOS,M-BASIC-D-BASIC 15 MM in 0.9 % SODIUM CHLORIDE 250 ML IV NR (16:30)
[2025-07-01 17:38] VITALS: BP 150/85; O2SAT 98
[2025-07-02 02:12] VITALS: BP 122/70; O2SAT 97
[2025-07-02 08:27] VITALS: BP 134/82
[2025-07-02] MEDS ORDERED: FOLIC ACID 1 MG TABLET PO SCH (09:00)
[2025-07-02] MEDS ORDERED: HYDROXYUREA 500 MG CAP PO SCH (09:00)
[2025-07-02 12:10] LABS: BASO % 0.5 % (0.1-1.2); EOS # 0.16 (0.04-0.54); EOS % 1.9 % (0.7-7.0); LYMPH # 2.51 (1.18-3.74); LYMPH % 29.9 % (19.3-53.1); MEAN PLATELET VOLUME 9.50 fl (9.4-12.4); MONO # 0.66 (0.24-0.82); MONO % 7.9 % (4.7-12.5); NEUT # 4.96 (1.56-6.13); NEUT % 59.0 % (34.0-71.1); RED CELL DISTRIBUTION WIDTH 16.0 % (11.6-14.4)
[2025-07-02 12:37] LABS: ALT/SGPT 36.0 U/L (12-78); AST/SGOT 58.0 U/L (15-37); BILIRUBIN TOTAL 1.69 mg/dL (0.3-1.2); BUN CREA RATIO 9.0 (7.0-25.0); CREATININE SERUM 0.66 mg/dL (0.70-1.30); GFR 140.78; GLOBULINA 2.5 G/DL (2.4-3.5); GLUCOSE FASTING 103.0 mg/dL (65-100); OSMOLALITY SERUM 277.0 MOSM/KG (275-295)
[2025-07-02] MEDS ORDERED: MAGNESIUM SULFATE IN WATER 50 ML IV NR (14:00)
[2025-07-02] MEDS ORDERED: CITRIC ACID/SODIUM CITRATE 30 ML BLIST.PACK PO NR (14:30)
[2025-07-02 17:36] VITALS: BP 139/92
[2025-07-02 21:14] VITALS: BP 155/89; O2SAT 100
[2025-07-02 23:27] VITALS: BP 140/73; O2SAT 99
[2025-07-03] VITALS (9 sets, daily range): BP systolic 124–151; BP diastolic 68–93; O2SAT 84–100
[2025-07-03] MEDS ORDERED: PIPERACILLIN/TAZOBACTAM SODIUM 3.375 GM VIAL IV SCH
[2025-07-03 08:41] LABS: BASO % 0.5 % (0.1-1.2); EOS # 0.27 (0.04-0.54); EOS % 2.7 % (0.7-7.0); LYMPH # 3.38 (1.18-3.74); LYMPH % 33.2 % (19.3-53.1); MEAN PLATELET VOLUME 10.60 fl (9.4-12.4); MONO # 0.79 (0.24-0.82); MONO % 7.8 % (4.7-12.5); NEUT # 5.65 (1.56-6.13); NEUT % 55.4 % (34.0-71.1); RED CELL DISTRIBUTION WIDTH 16.0 % (11.6-14.4)
[2025-07-03 09:07] LABS: ALT/SGPT 31.0 U/L (12-78); AST/SGOT 42.0 U/L (15-37); BILIRUBIN TOTAL 1.87 mg/dL (0.3-1.2); BILIRUBIN,CONJUGATED 0.41 mg/dL (0.0-0.2); BUN CREA RATIO 9.0 (7.0-25.0); CREATININE SERUM 0.64 mg/dL (0.70-1.30); GFR 145.87; GLUCOSE FASTING 89.0 mg/dL (65-100); LDH 819.0 U/L (87-241); OSMOLALITY SERUM 280.0 MOSM/KG (275-295)
[2025-07-03] MEDS ORDERED: ONDANSETRON HCL 2 MG/ML VIAL IV PRN (10:15)
[2025-07-03] MEDS ORDERED: NALOXONE HCL 0.4 MG/ML AMPUL IV PRN (10:15)
[2025-07-03] MEDS ORDERED: MORPHINE SULFATE 4 MG/ML VIAL IV SCH ×2 (10:15→17:00)
[2025-07-03 10:29] LABS: ALT/SGPT 31 U/L (12-78); AST/SGOT 41 U/L (15-37); LDH 795 U/L (87-241); PHOSPHOKINASE CREATININE 388 U/L (39-308)
[2025-07-03] MEDS ORDERED: PANTOPRAZOLE SODIUM 40 MG TABLET.DR PO NR (10:35)
[2025-07-03] MEDS ORDERED: ENOXAPARIN SODIUM 40 MG/0.4 ML SYRINGE SUBCUTANEO NR (12:35)
[2025-07-03] MEDS ORDERED: KETAMINE HCL 50 MG/ML IV SCH (14:30)
[2025-07-03] MEDS ORDERED: KETAMINE HCL 50 MG/ML IV NR (14:45)
[2025-07-03] MEDS ORDERED: LACTOBACILLUS ACIDOPHILUS 1 CAP CAP PO SCH (17:00)
[2025-07-03] MEDS ORDERED: POLYETHYLENE GLYCOL 3350 17 GM BLIST.PACK PO SCH (17:00)
[2025-07-04] VITALS (11 sets, daily range): BP systolic 114–155; BP diastolic 58–95; O2SAT 95–100
[2025-07-04 07:40] LABS: BASO % 0.6 % (0.1-1.2); EOS # 0.24 (0.04-0.54); EOS % 2.2 % (0.7-7.0); LYMPH # 3.22 (1.18-3.74); LYMPH % 29.8 % (19.3-53.1); MEAN PLATELET VOLUME 10.10 fl (9.4-12.4); MONO # 0.90 (0.24-0.82); MONO % 8.3 % (4.7-12.5); NEUT # 6.32 (1.56-6.13); NEUT % 58.5 % (34.0-71.1); RED CELL DISTRIBUTION WIDTH 16.0 % (11.6-14.4)
[2025-07-04 08:07] LABS: ALT/SGPT 36.0 U/L (12-78); AST/SGOT 44.0 U/L (15-37); BILIRUBIN TOTAL 1.83 mg/dL (0.3-1.2); BILIRUBIN,CONJUGATED 0.49 mg/dL (0.0-0.2); BUN CREA RATIO 5.0 (7.0-25.0); CREATININE SERUM 0.66 mg/dL (0.70-1.30); GFR 140.78; GLUCOSE FASTING 107.0 mg/dL (65-100); LDH 732.0 U/L (87-241); OSMOLALITY SERUM 280.0 MOSM/KG (275-295)
[2025-07-04] MEDS ORDERED: ENOXAPARIN SODIUM 40 MG/0.4 ML SYRINGE SUBCUTANEO SCH (09:00)
[2025-07-04] MEDS ORDERED: PANTOPRAZOLE SODIUM 40 MG TABLET.DR PO SCH (09:00)
[2025-07-04] MEDS ORDERED: MIDAZOLAM HCL 2 MG/2 ML VIAL IV ONE (13:15)
[2025-07-04] MEDS ORDERED: KETAMINE HCL IV SCH (13:45)
[2025-07-04] MEDS ORDERED: SODIUM CHLORIDE 0.9% IV SCH (13:45)
[2025-07-04] MEDS ORDERED: SENNA/DOCUSATE SODIUM 1 TAB TABLET PO SCH (21:00)
[2025-07-05] VITALS (8 sets, daily range): BP systolic 110–153; BP diastolic 67–99; O2SAT 92–100
[2025-07-05 06:29] LABS: BASO % 0.6 % (0.1-1.2); EOS # 0.15 (0.04-0.54); EOS % 1.4 % (0.7-7.0); LYMPH # 2.97 (1.18-3.74); LYMPH % 28.0 % (19.3-53.1); MEAN PLATELET VOLUME 9.50 fl (9.4-12.4); MONO # 0.82 (0.24-0.82); MONO % 7.7 % (4.7-12.5); NEUT # 6.55 (1.56-6.13); NEUT % 61.8 % (34.0-71.1); RED CELL DISTRIBUTION WIDTH 16.1 % (11.6-14.4)
[2025-07-05 07:12] LABS: ALT/SGPT 39.0 U/L (12-78); AST/SGOT 37.0 U/L (15-37); BILIRUBIN TOTAL 1.75 mg/dL (0.3-1.2); BILIRUBIN,CONJUGATED 0.51 mg/dL (0.0-0.2); BUN CREA RATIO 7.0 (7.0-25.0); CREATININE SERUM 0.71 mg/dL (0.70-1.30); GFR 129.4; GLUCOSE FASTING 135.0 mg/dL (65-100); LDH 647.0 U/L (87-241); OSMOLALITY SERUM 284.0 MOSM/KG (275-295)
[2025-07-06 01:40] LABS: BASO % 0.7 % (0.1-1.2); EOS # 0.28 (0.04-0.54); EOS % 3.2 % (0.7-7.0); LYMPH # 3.37 (1.18-3.74); LYMPH % 38.1 % (19.3-53.1); MEAN PLATELET VOLUME 10.00 fl (9.4-12.4); MONO # 0.62 (0.24-0.82); MONO % 7.0 % (4.7-12.5); NEUT # 4.47 (1.56-6.13); NEUT % 50.5 % (34.0-71.1); RED CELL DISTRIBUTION WIDTH 17.5 % (11.6-14.4)
[2025-07-06 12:07] VITALS: BP 152/99; O2SAT 100
[2025-07-06 15:12] VITALS: BP 1200/86; O2SAT 100
[2025-07-06 20:14] VITALS: BP 135/92; O2SAT 100
[2025-07-06] MEDS ORDERED: MORPHINE SULFATE 4 MG/ML CARTRIDGE IV SCH (22:58)
[2025-07-06] MEDS ORDERED: LIDOCAINE 5% 1 PATCH ADH. TOP SCH (22:59)
[2025-07-06 23:00] VITALS: BP 140/89; O2SAT 100
[2025-07-07 04:00] VITALS: BP 126/67; O2SAT 100
[2025-07-07 06:18] LABS: BASO % 0.6 % (0.1-1.2); EOS # 0.15 (0.04-0.54); EOS % 1.7 % (0.7-7.0); LYMPH # 3.32 (1.18-3.74); LYMPH % 38.2 % (19.3-53.1); MEAN PLATELET VOLUME 9.70 fl (9.4-12.4); MONO # 0.91 (0.24-0.82); MONO % 10.5 % (4.7-12.5); NEUT # 4.20 (1.56-6.13); NEUT % 48.4 % (34.0-71.1); RED CELL DISTRIBUTION WIDTH 17.8 % (11.6-14.4)
[2025-07-07 07:08] VITALS: BP 132/55; O2SAT 100
[2025-07-07 07:14] LABS: ALT/SGPT 35.0 U/L (12-78); AST/SGOT 23.0 U/L (15-37); BILIRUBIN TOTAL 0.65 mg/dL (0.3-1.2); BUN CREA RATIO 8.0 (7.0-25.0); CREATININE SERUM 0.78 mg/dL (0.70-1.30); GFR 116.09; GLOBULINA 2.6 G/DL (2.4-3.5); GLUCOSE FASTING 106.0 mg/dL (65-100); OSMOLALITY SERUM 285.0 MOSM/KG (275-295)
[2025-07-07 07:49] LABS: BAND MAN 1.0 %; EOSINOPHIL MAN 4.0 %; LYMPHOCYTE MAN 41.0 %; MONOCYTE MAN 8.0 %; NEUTROPHILS MAN 46.0 %
[2025-07-07 12:00] VITALS: BP 131/91
[2025-07-07 15:10] VITALS: BP 137/73; O2SAT 100
[2025-07-07] MEDS ORDERED: MORPHINE SULFATE 4 MG/ML CARTRIDGE IV SCH (17:00)
[2025-07-07] MEDS ORDERED: LIDOCAINE 5% 1 PATCH ADH. TOP SCH (21:00)
[2025-07-07 23:28] VITALS: BP 152/97; O2SAT 99
[2025-07-08 08:00] VITALS: BP 152/95; O2SAT 100
[2025-07-08 15:26] VITALS: BP 121/68; O2SAT 100
[2025-07-08 23:00] VITALS: BP 128/80; O2SAT 100
[2025-07-09 07:52] LABS: BASO % 0.7 % (0.1-1.2); EOS # 0.16 (0.04-0.54); EOS % 1.8 % (0.7-7.0); LYMPH # 3.66 (1.18-3.74); LYMPH % 41.3 % (19.3-53.1); MEAN PLATELET VOLUME 9.90 fl (9.4-12.4); MONO # 0.48 (0.24-0.82); MONO % 5.4 % (4.7-12.5); NEUT # 4.44 (1.56-6.13); NEUT % 50.1 % (34.0-71.1); RED CELL DISTRIBUTION WIDTH 17.9 % (11.6-14.4)
[2025-07-09 08:29] LABS: ALT/SGPT 43.0 U/L (12-78); AST/SGOT 29.0 U/L (15-37); BILIRUBIN TOTAL 0.6 mg/dL (0.3-1.2); BUN CREA RATIO 14.0 (7.0-25.0); CREATININE SERUM 0.73 mg/dL (0.70-1.30); GFR 125.32; GLOBULINA 2.9 G/DL (2.4-3.5); GLUCOSE FASTING 140.0 mg/dL (65-100); OSMOLALITY SERUM 290.0 MOSM/KG (275-295)
[2025-07-09 08:44] VITALS: BP 120/63; O2SAT 100
[2025-07-09] MEDS ORDERED: HYDROXYUREA500 MG PO (14:03)
[2025-07-09] MEDS ORDERED: GABAPENTIN800 MG PO (14:03)
[2025-07-09] MEDS ORDERED: PERCOCET 5-3251 EACH PO (14:04)
[2025-07-09] MEDS ORDERED: FOLIC ACID1 MG PO (14:05)
== END 2025-07-09 14:33 | disposition home or self-care (01) | DRG 812 ==
LOC: ER 12:17 → MEDJ 21:54 → ICU 07-02 21:25 → MEDI 07-08 16:46
PROVIDERS: General Practice; Internal Medicine; ADMIT Internal Medicine; ATTEND Internal Medicine
PROC: BW40ZZZ Ultrasonography of Abdomen (ICD-10-PCS; principal; 2025-06-29)
PROC: 02HV33Z Insertion of Infusion Device into Superior Vena Cava, Percutaneous Approach (ICD-10-PCS; 2025-07-01)
PROC: 30233N1 Transfusion of Nonautologous Red Blood Cells into Peripheral Vein, Percutaneous Approach (ICD-10-PCS; 2025-07-05)
DX: D57.211 Sickle-cell/Hb-C disease with acute chest syndrome (principal); R65.10 Systemic inflammatory response syndrome (SIRS) of non-infectious origin without acute organ dysfunction; I10 Essential (primary) hypertension; E86.0 Dehydration; F41.9 Anxiety disorder, unspecified